=== PATIENT | female | born 1960 | race Two or more races ===

== ENCOUNTER 2018-11-27 08:58 | Emergency (ER) | payer SELFPAY ==
[~2018-11-27] VITALS: Ht 165.1 cm; Wt 80.3 kg
[2018-11-27 08:58] VITALS: BP 116/70
--- NOTE | 2018-11-27 09:35 | NUR ---
IV LINE ESTABLISHED, LABS DRAWNED AND SENT TO LAB.
--- NOTE | 2018-11-27 09:42 | NUR ---
DR. SALEH AT BEDSIDE FOR EVAL.
--- NOTE | 2018-11-27 09:50 | NUR ---
J[employer]IOR [employer]IST[employer] AT BEDSIDE FOR XRAY.
--- NOTE | 2018-11-27 10:50 | NUR ---
TECH AT BEDSIDE FOR US.
--- NOTE | 2018-11-27 12:11 | NUR ---
IV removed. Catheter intact and site benign. Pressure and 4x4 applied to site. No bleeding noted. Patient discharged to home in stable condition. Written and verbal after care instructions given. Patient verbalizes understanding of instruction.
== END 2018-11-27 12:12 | disposition home or self-care (01) ==
LOC: ER 09:00
DX: M54.17 Radiculopathy, lumbosacral region (principal); M79.604 Pain in right leg; I10 Essential (primary) hypertension; Z88.1 Allergy status to other antibiotic agents; Z88.8 Allergy status to other drugs, medicaments and biological substances; Z88.2 Allergy status to sulfonamides
CPT/HCPCS: 73564-TC; 93971-TC